=== PATIENT | male | born 1955 | race Caucasian/White ===

== ENCOUNTER 2017-12-26 13:05 | Emergency (ER) | payer OTHER ==
[~2017-12-26] VITALS: Ht 177.8 cm; Wt 123.8 kg
[~2017-12-26 13:05] MED LIST: ACETAMIN W/ COD1 TAB PO; ASPIR 8181 MG PO; AZITHROMYCIN250 M1 PO; BACLOFEN10 MG PO; BACTRIM DS1 TAB PO; BENAZEPRIL HYDR20 M1 PO; CIPRO500 MG PO; CIPROFLOXACIN500 MG PO; CLINDAMYCIN HC300 MG PO; COLACE100 MG PO; DEPAKOTE ER250 M1 PO; DEPAKOTE500 MG PO; DONEPEZIL HCL5 MG PO; DUONEB3 ML NEB; FERROUS SULFAT325 M2 PO; FLO4 PO; HCTZ/LISINOPRIL1 TA1 PO; HYDROCHLOROTH12.5 M2 PO; LAC PO; LAC30L PO; LEVAQUIN500 MG PO; LEVAQUIN750 MG PO; LIPI20 PO; MEDDP PO; NEO500 PO; NEU300 PO; NORCO1 TA2 PO; OMEPRAZOLE DR20 M1 PO; PAIN & FEVER500 MG PO; PHEDML PO; PRILOSEC20 MG PO; TEGRETOL200 MG PO; TYLENOL EXTRA500 M3 PO; VENTOLIN H0.09 MG/A1 IH; ZITHROMAX Z-PA250 MG PO
[2017-12-26 13:10] VITALS: Ht 177.8 cm; Wt 123.8 kg
[2017-12-26 14:07] VITALS: BP 150/83
== END 2017-12-26 14:07 | disposition home or self-care (01) ==
LOC: ED 13:05
DX: N39.0 Urinary tract infection, site not specified (principal); I10 Essential (primary) hypertension; Z90.49 Acquired absence of other specified parts of digestive tract; Z86.73 Personal history of transient ischemic attack (TIA), and cerebral infarction without residual deficits
CPT/HCPCS: J1885

== ENCOUNTER 2018-01-14 09:39 | Emergency (ER) | payer OTHER ==
[~2018-01-14] VITALS: Ht 175.3 cm; Wt 122.9 kg
[2018-01-14 10:56] LABS: BASOPHIL % 0.5 % (0-2); PLATELET COUNT 285 x10^3mcL (130-400); RED CELL DISTRIBUTION WIDTH 13.8 % (11.5-14.5)
[2018-01-14 10:58] LABS: microscopic required? YES; urine erythrocyte 3+ (NEGATIVE)
[2018-01-14 11:05] LABS: CARBON DIOXIDE 30.6 mmol/L (21-32); CHLORIDE SERUM 97 mmol/L (98-107); CREATININE SERUM 0.8 mg/dL (0.7-1.3); GFR1 > 60 mL/min; GLUCOSE SERUM 92 mg/dL (74-106); POTASSIUM SERUM 4.5 mmol/L (3.5-5.1); SODIUM SERUM 134 mmol/L (136-145)
[2018-01-14 11:09] LABS: ALKALINE PHOSPHATASE 96 U/L (46-116); ALT/SGPT 24 U/L (16-63); AST/SGOT 15 U/L (15-37); BILIRUBIN TOTAL 0.4 mg/dL (0.20-1.00); TOTAL PROTEIN, SERUM 6.8 g/dL (6.4-8.2)
[2018-01-14 11:10] LABS: ALBUMIN 3.3 g/dL (3.4-5.0)
[2018-01-14 12:18] VITALS: BP 135/91
== END 2018-01-14 12:18 | disposition home or self-care (01) ==
LOC: ED 09:39
PROVIDERS: Emergency Medicine
DX: R31.9 Hematuria, unspecified (principal); N39.0 Urinary tract infection, site not specified; I10 Essential (primary) hypertension; D64.9 Anemia, unspecified; Z90.49 Acquired absence of other specified parts of digestive tract; Z86.79 Personal history of other diseases of the circulatory system
CPT/HCPCS: 36415

== ENCOUNTER 2018-10-23 13:22 | Inpatient (IN) | payer OTHER ==
[~2018-10-23] VITALS: Ht 177.8 cm; Wt 124.5 kg
[2018-10-23 14:01] LABS: BASOPHIL % 0.5 % (0-2); PLATELET COUNT 272 x10^3mcL (130-400); RED CELL DISTRIBUTION WIDTH 13.1 % (11.5-14.5)
[2018-10-23 14:41] LABS: ALKALINE PHOSPHATASE 103 U/L (46-116); ALT/SGPT 23 U/L (16-63); AST/SGOT 14 U/L (15-37); BILIRUBIN TOTAL 0.5 mg/dL (0.20-1.00); CALCIUM 8.1 mg/dL (8.5-10.1); CHLORIDE SERUM 93 mmol/L (98-107); CREATININE SERUM 0.8 mg/dL (0.7-1.3); GFR1 > 60 mL/min; GLUCOSE SERUM 95 mg/dL (74-106); LIPASE 59 IU/L (73-393); POTASSIUM SERUM 4.4 mmol/L (3.5-5.1); SODIUM SERUM 129 mmol/L (136-145); TOTAL PROTEIN, SERUM 6.5 g/dL (6.4-8.2)
[2018-10-23 14:44] LABS: ALBUMIN 2.9 g/dL (3.4-5.0)
[2018-10-23 18:04] VITALS: BP 151/96
[2018-10-23 18:18] VITALS: Ht 177.8 cm; Wt 124.5 kg
[2018-10-23 18:44] LABS: CHOLESTEROL/HDL RATIO 3.4; MAGNESIUM 1.5 mg/dL (1.8-2.4); PHOSPHOROUS 3.3 mg/dL (2.5-4.9)
[2018-10-23 18:50] LABS: T3 TOTAL 1.08 ng/mL
[2018-10-23 18:52] LABS: FREE T4 0.84 ng/dL (0.76-1.46); FREE THYROXINE INDEX 2.2 ug/dL (1.4-4.5); T4(THYROXINE) 6.8 ug/dL (4.7-13.3)
[2018-10-23 21:11] VITALS: BP 144/77
[2018-10-24 01:17] LABS: microscopic required? NO
[2018-10-24 01:23] LABS: urine erythrocyte NEGATIVE (NEGATIVE)
[2018-10-24 01:51] LABS: AMPHETAMINE QUAL UR NONE DETECTED (See below)
[2018-10-24 05:18] VITALS: BP 146/78
[2018-10-24 07:04] LABS: CALCIUM 8.1 mg/dL (8.5-10.1); CHLORIDE SERUM 99 mmol/L (98-107); CREATININE SERUM 0.8 mg/dL (0.7-1.3); GFR1 > 60 mL/min; GLUCOSE SERUM 91 mg/dL (74-106); PHOSPHOROUS 2.9 mg/dL (2.5-4.9); POTASSIUM SERUM 4.2 mmol/L (3.5-5.1); SODIUM SERUM 133 mmol/L (136-145)
[2018-10-24 07:11] LABS: BASOPHIL % 0.4 % (0-2); PLATELET COUNT 288 x10^3mcL (130-400); RED CELL DISTRIBUTION WIDTH 13.1 % (11.5-14.5)
[2018-10-24 09:12] VITALS: BP 146/84
[2018-10-24 17:46] VITALS: BP 137/94
[2018-10-24 20:19] VITALS: BP 130/78
[2018-10-25 05:47] VITALS: BP 117/74
[2018-10-25 07:28] LABS: BASOPHIL % 0.3 % (0-2); PLATELET COUNT 260 x10^3mcL (130-400)
[2018-10-25 07:41] LABS: CALCIUM 8.1 mg/dL (8.5-10.1); CARBON DIOXIDE 27.8 mmol/L (21-32); CHLORIDE SERUM 100 mmol/L (98-107); CREATININE SERUM 0.8 mg/dL (0.7-1.3); GFR1 > 60 mL/min; GLUCOSE SERUM 89 mg/dL (74-106); POTASSIUM SERUM 3.6 mmol/L (3.5-5.1); SODIUM SERUM 134 mmol/L (136-145)
[2018-10-25 08:22] VITALS: BP 118/77
[2018-10-25 17:11] VITALS: BP 142/88
[2018-10-25 20:58] VITALS: BP 131/92
[2018-10-26 05:13] VITALS: BP 147/90
[2018-10-26 07:28] LABS: BASOPHIL % 0.4 % (0-2); PLATELET COUNT 263 x10^3mcL (130-400); RED CELL DISTRIBUTION WIDTH 12.8 % (11.5-14.5)
[2018-10-26 07:50] LABS: CALCIUM 8.1 mg/dL (8.5-10.1); CARBON DIOXIDE 26.7 mmol/L (21-32); CHLORIDE SERUM 97 mmol/L (98-107); CREATININE SERUM 0.7 mg/dL (0.7-1.3); GFR1 > 60 mL/min; GLUCOSE SERUM 90 mg/dL (74-106); MAGNESIUM 1.6 mg/dL (1.8-2.4); PHOSPHOROUS 3.3 mg/dL (2.5-4.9); POTASSIUM SERUM 3.5 mmol/L (3.5-5.1); SODIUM SERUM 132 mmol/L (136-145)
[2018-10-26 09:21] VITALS: BP 142/88
[2018-10-26 13:02] VITALS: BP 142/88
[2018-10-26] MEDS ORDERED: IMO2 PO (14:18)
[2018-10-26] MEDS ORDERED: ONDANSETRON4 M3 PO (14:18)
== END 2018-10-26 16:15 | disposition home or self-care (01) | DRG 391 ==
LOC: ED 13:22 → MU 17:06
PROVIDERS: Emergency Medicine; Family Medicine
DX: K52.9 Noninfective gastroenteritis and colitis, unspecified (principal); E43 Unspecified severe protein-calorie malnutrition; E87.1 Hypo-osmolality and hyponatremia; E44.0 Moderate protein-calorie malnutrition; E86.0 Dehydration; E83.42 Hypomagnesemia; G40.909 Epilepsy, unspecified, not intractable, without status epilepticus; I10 Essential (primary) hypertension; N40.0 Benign prostatic hyperplasia without lower urinary tract symptoms; G30.9 Alzheimer's disease, unspecified; F02.80 Dementia in other diseases classified elsewhere, unspecified severity, without behavioral disturbance, psychotic disturbance, mood disturbance, and anxiety; E78.5 Hyperlipidemia, unspecified; E66.9 Obesity, unspecified; Z68.39 Body mass index [BMI] 39.0-39.9, adult; Z86.73 Personal history of transient ischemic attack (TIA), and cerebral infarction without residual deficits
CPT/HCPCS: 83880; 84439; 87046; 87046-59; C9113; J1956; J2405; J3475; J3490; Q0092

== ENCOUNTER 2019-02-12 11:06 | Inpatient (IN) | payer OTHER ==
[~2019-02-12] VITALS: Ht 177.8 cm; Wt 116.6 kg
[~2019-02-12 11:06] MED LIST changes: +IMO2 PO; +ONDANSETRON4 M3 PO
[2019-02-12 11:21] VITALS: Ht 177.8 cm; Wt 116.6 kg
[2019-02-12 11:58] LABS: microscopic required? YES; urine erythrocyte 2+ (NEGATIVE)
[2019-02-12 12:17] LABS: BASOPHIL % 0.3 % (0-2); PLATELET COUNT 284 x10^3mcL (130-400); RED CELL DISTRIBUTION WIDTH 13.3 % (11.5-14.5)
[2019-02-12 12:34] LABS: CALCIUM 8.2 mg/dL (8.5-10.1); CARBON DIOXIDE 29.7 mmol/L (21-32); CHLORIDE SERUM 91 mmol/L (98-107); CREATININE SERUM 0.7 mg/dL (0.7-1.3); GFR1 > 60 mL/min; GLUCOSE SERUM 118 mg/dL (74-106); POTASSIUM SERUM 4.5 mmol/L (3.5-5.1); SODIUM SERUM 126 mmol/L (136-145)
[2019-02-12 12:39] LABS: ALKALINE PHOSPHATASE 118 U/L (46-116); ALT/SGPT 17 U/L (16-63); AST/SGOT 16 U/L (15-37); BILIRUBIN TOTAL 0.51 mg/dL (0.20-1.00); TOTAL PROTEIN, SERUM 6.9 g/dL (6.4-8.2)
[2019-02-12 12:43] LABS: ALBUMIN 3.3 g/dL (3.4-5.0)
[2019-02-12] MEDS ORDERED: LIPI10 PO (14:31)
[2019-02-12] MEDS ORDERED: FERROUS SULFAT325 M2 PO (14:31)
[2019-02-12] MEDS ORDERED: BENAZEPRIL HYDR20 M1 PO (14:31)
[2019-02-12] MEDS ORDERED: ASPIR 8181 MG PO (14:32)
[2019-02-12] MEDS ORDERED: OMEPRAZOLE20 M4 PO (14:32)
[2019-02-12] MEDS ORDERED: NEU300 PO (14:33)
[2019-02-12] MEDS ORDERED: DEPAKOTE ER500 MG PO (14:33)
[2019-02-12] MEDS ORDERED: TEGRETOL200 MG PO (14:34)
[2019-02-12] MEDS ORDERED: TAMSULOSIN HYD0.4 M1 PO (14:34)
[2019-02-12] MEDS ORDERED: BACLOFEN10 MG PO (14:34)
[2019-02-12 15:28] LABS: CHOLESTEROL/HDL RATIO 3.2; MAGNESIUM 1.6 mg/dL (1.8-2.4); PHOSPHOROUS 2.4 mg/dL (2.5-4.9)
[2019-02-12 15:34] LABS: FREE T4 0.78 ng/dL (0.76-1.46); FREE THYROXINE INDEX 2.2 ug/dL (1.4-4.5); T4(THYROXINE) 6.7 ug/dL (4.7-13.3)
[2019-02-12 15:35] LABS: T3 TOTAL 1.26 ng/mL
[2019-02-12 15:51] VITALS: BP 143/72
[2019-02-12 20:38] VITALS: BP 117/65
[2019-02-13 05:39] VITALS: BP 105/51
[2019-02-13 06:15] LABS: BASOPHIL % 0.2 % (0-2); PLATELET COUNT 226 x10^3mcL (130-400); RED CELL DISTRIBUTION WIDTH 13.7 % (11.5-14.5)
[2019-02-13 06:38] LABS: CALCIUM 8.1 mg/dL (8.5-10.1); CARBON DIOXIDE 26.7 mmol/L (21-32); CHLORIDE SERUM 96 mmol/L (98-107); CREATININE SERUM 0.8 mg/dL (0.7-1.3); GFR1 > 60 mL/min; GLUCOSE SERUM 122 mg/dL (74-106); MAGNESIUM 1.9 mg/dL (1.8-2.4); PHOSPHOROUS 2.7 mg/dL (2.5-4.9); POTASSIUM SERUM 4.5 mmol/L (3.5-5.1); SODIUM SERUM 131 mmol/L (136-145)
[2019-02-13 08:45] VITALS: BP 131/65
[2019-02-13 14:20] VITALS: BP 113/67
[2019-02-13 17:05] VITALS: BP 121/71
[2019-02-13 21:47] VITALS: BP 136/85
[2019-02-14 05:28] VITALS: BP 134/82
[2019-02-14 06:16] LABS: BASOPHIL % 0.2 % (0-2); PLATELET COUNT 209 x10^3mcL (130-400); RED CELL DISTRIBUTION WIDTH 13.4 % (11.5-14.5)
[2019-02-14 07:01] LABS: CARBON DIOXIDE 27.1 mmol/L (21-32); CHLORIDE SERUM 97 mmol/L (98-107); CREATININE SERUM 0.7 mg/dL (0.7-1.3); GFR1 > 60 mL/min; GLUCOSE SERUM 104 mg/dL (74-106); SODIUM SERUM 129 mmol/L (136-145)
[2019-02-14 09:11] VITALS: BP 128/86
[2019-02-14 13:05] VITALS: BP 113/73
[2019-02-14 16:50] VITALS: BP 112/72
[2019-02-14 21:08] VITALS: BP 156/80
[2019-02-15 05:27] VITALS: BP 142/85
[2019-02-15 06:05] LABS: BASOPHIL % 0.5 % (0-2); PLATELET COUNT 227 x10^3mcL (130-400); RED CELL DISTRIBUTION WIDTH 12.5 % (11.5-14.5)
[2019-02-15 06:10] LABS: CARBON DIOXIDE 28.9 mmol/L (21-32); CHLORIDE SERUM 98 mmol/L (98-107); CREATININE SERUM 0.7 mg/dL (0.7-1.3); GFR1 > 60 mL/min; GLUCOSE SERUM 105 mg/dL (74-106); POTASSIUM SERUM 4.2 mmol/L (3.5-5.1); SODIUM SERUM 132 mmol/L (136-145)
[2019-02-15] MEDS ORDERED: CIPRO500 MG PO (08:47)
[2019-02-15 09:01] VITALS: BP 148/85
[2019-02-15 11:54] VITALS: BP 148/85
[2019-02-15 12:13] VITALS: BP 139/78
== END 2019-02-15 13:24 | disposition home or self-care (01) | DRG 689 ==
LOC: ED 11:06 → MU 14:38 → DU 14:38 → MU 15:29 → DU 16:14
PROVIDERS: Emergency Medicine; ADMIT General Practice
DX: N39.0 Urinary tract infection, site not specified (principal); N17.0 Acute kidney failure with tubular necrosis; I50.43 Acute on chronic combined systolic (congestive) and diastolic (congestive) heart failure; E87.1 Hypo-osmolality and hyponatremia; E87.2 Acidosis; Z68.41 Body mass index [BMI] 40.0-44.9, adult; I69.351 Hemiplegia and hemiparesis following cerebral infarction affecting right dominant side; R73.03 Prediabetes; I69.320 Aphasia following cerebral infarction; I10 Essential (primary) hypertension; B96.29 Other Escherichia coli [E. coli] as the cause of diseases classified elsewhere; N40.1 Benign prostatic hyperplasia with lower urinary tract symptoms; R35.0 Frequency of micturition; E83.39 Other disorders of phosphorus metabolism; E83.42 Hypomagnesemia; E78.5 Hyperlipidemia, unspecified; D64.9 Anemia, unspecified; Z79.82 Long term (current) use of aspirin
CPT/HCPCS: 83880; 84439; 97112-GP; 97116-GP; 97530-GP; J0696; J1885; J7030; Q0092

== ENCOUNTER 2020-02-02 20:59 | Emergency (ER) | payer OTHER ==
[~2020-02-02] VITALS: Ht 170.2 cm; Wt 128.8 kg
[~2020-02-02 20:59] MED LIST changes: +DEPAKOTE ER500 MG PO; +LIPI10 PO; +OMEPRAZOLE20 M4 PO; +TAMSULOSIN HYD0.4 M1 PO
[2020-02-02 21:14] VITALS: Ht 170.2 cm; Wt 128.8 kg
[2020-02-02 22:35] VITALS: BP 166/84
== END 2020-02-02 22:35 | disposition home or self-care (01) ==
LOC: ED 20:59
DX: J20.9 Acute bronchitis, unspecified (principal); I10 Essential (primary) hypertension; Z86.2 Personal history of diseases of the blood and blood-forming organs and certain disorders involving the immune mechanism; Z90.49 Acquired absence of other specified parts of digestive tract; Z98.890 Other specified postprocedural states

== ENCOUNTER 2020-05-02 16:39 | Inpatient (IN) | payer OTHER ==
[~2020-05-02] VITALS: Ht 170.2 cm; Wt 128.8 kg
[2020-05-02 17:04] VITALS: Ht 170.2 cm; Wt 128.8 kg
[2020-05-02 17:54] LABS: microscopic required? NO
[2020-05-02 18:15] LABS: BASOPHIL % 0.7 % (0-2); PLATELET COUNT 350 x10^3mcL (130-400)
[2020-05-02 18:17] LABS: RED CELL DISTRIBUTION WIDTH 16.4 % (11.5-14.5)
[2020-05-02 18:21] LABS: UA SPECIFIC GRAVITY 1.015 (1.005-1.035); urine erythrocyte NEGATIVE (NEGATIVE)
[2020-05-02 18:27] LABS: CALCIUM 7.6 mg/dL (8.5-10.1); CARBON DIOXIDE 24.9 mmol/L (21-32); CHLORIDE SERUM 95 mmol/L (98-107); CREATININE SERUM 0.7 mg/dL (0.7-1.3); GFR1 > 60 mL/min; GLUCOSE SERUM 94 mg/dL (74-106); POTASSIUM SERUM 4.2 mmol/L (3.5-5.1); SODIUM SERUM 127 mmol/L (136-145)
[2020-05-02 18:32] LABS: ALKALINE PHOSPHATASE 97 U/L (46-116); ALT/SGPT 21 U/L (16-63); AST/SGOT 15 U/L (15-37); BILIRUBIN TOTAL 0.4 mg/dL (0.20-1.00)
[2020-05-02 18:34] LABS: TOTAL PROTEIN, SERUM 6.1 g/dL (6.4-8.2)
[2020-05-02] MEDS ORDERED: DEPAKOTE250 MG PO (19:03)
[2020-05-02] MEDS ORDERED: LIPITOR20 MG PO (19:04)
[2020-05-02 19:56] LABS: CHOLESTEROL/HDL RATIO 3.5
[2020-05-02 20:05] LABS: T3 TOTAL 1.08 ng/mL
[2020-05-02 20:06] LABS: FREE T4 0.88 ng/dL (0.76-1.46); FREE THYROXINE INDEX 2.2 ug/dL (1.4-4.5); T4(THYROXINE) 6.6 ug/dL (4.7-13.3)
[2020-05-03 00:43] VITALS: BP 133/79
[2020-05-03 05:40] VITALS: BP 132/77
[2020-05-03 06:33] LABS: CALCIUM 7.9 mg/dL (8.5-10.1); CARBON DIOXIDE 26.4 mmol/L (21-32); CHLORIDE SERUM 97 mmol/L (98-107); CREATININE SERUM 0.8 mg/dL (0.7-1.3); GFR1 > 60 mL/min; GLUCOSE SERUM 90 mg/dL (74-106); MAGNESIUM 1.8 mg/dL (1.8-2.4); PHOSPHOROUS 3.8 mg/dL (2.5-4.9); POTASSIUM SERUM 4.4 mmol/L (3.5-5.1); SODIUM SERUM 131 mmol/L (136-145)
[2020-05-03 07:33] LABS: BASOPHIL % 0.6 % (0-2); PLATELET COUNT 371 x10^3mcL (130-400)
[2020-05-03 07:50] LABS: RED CELL DISTRIBUTION WIDTH 16.7 % (11.5-14.5)
[2020-05-03 08:22] VITALS: BP 163/91
[2020-05-03 08:59] LABS: RED BLOOD CELLS 3.6 M/mm3 (4.52-5.90)
[2020-05-03 10:53] LABS: IRON 23 ug/dL (65-170); TOTAL IRON BINDING CAPACITY 472 ug/dL (250-450)
[2020-05-03 12:17] VITALS: BP 125/70
[2020-05-03 16:32] VITALS: BP 114/67
[2020-05-03 20:37] VITALS: BP 149/80
[2020-05-04 04:48] VITALS: BP 123/79
[2020-05-04 07:03] LABS: BASOPHIL % 0.2 % (0-2); PLATELET COUNT 375 x10^3mcL (130-400)
[2020-05-04 07:04] LABS: CARBON DIOXIDE 29.1 mmol/L (21-32); CHLORIDE SERUM 101 mmol/L (98-107); CREATININE SERUM 1.1 mg/dL (0.7-1.3); GFR1 > 60 mL/min; GLUCOSE SERUM 110 mg/dL (74-106); MAGNESIUM 2.3 mg/dL (1.8-2.4); POTASSIUM SERUM 4.1 mmol/L (3.5-5.1); SODIUM SERUM 138 mmol/L (136-145)
[2020-05-04 07:17] LABS: RED CELL DISTRIBUTION WIDTH 16.7 % (11.5-14.5)
[2020-05-04 08:32] VITALS: BP 145/81
[2020-05-04 12:47] VITALS: BP 139/80
[2020-05-04 17:02] VITALS: BP 107/54
[2020-05-04 19:55] VITALS: BP 109/69
[2020-05-05 05:15] VITALS: BP 133/74
[2020-05-05 06:29] LABS: BASOPHIL % 0.1 % (0-2)
[2020-05-05 06:37] LABS: CALCIUM 7.9 mg/dL (8.5-10.1); CARBON DIOXIDE 25.2 mmol/L (21-32); CHLORIDE SERUM 98 mmol/L (98-107); GFR1 > 60 mL/min; GLUCOSE SERUM 151 mg/dL (74-106); MAGNESIUM 1.7 mg/dL (1.8-2.4); PHOSPHOROUS 3.7 mg/dL (2.5-4.9); POTASSIUM SERUM 4.1 mmol/L (3.5-5.1); SODIUM SERUM 135 mmol/L (136-145)
[2020-05-05 06:40] LABS: PLATELET COUNT 406 x10^3mcL (130-400); RED CELL DISTRIBUTION WIDTH 17.5 % (11.5-14.5)
[2020-05-05 12:02] VITALS: BP 127/86
[2020-05-05 16:53] VITALS: BP 109/80
[2020-05-05 21:00] VITALS: BP 92/59
[2020-05-05 23:19] VITALS: BP 90/57
[2020-05-06 05:44] VITALS: BP 106/60
[2020-05-06 08:44] VITALS: BP 106/58
[2020-05-06 09:51] LABS: PLATELET COUNT 367 x10^3mcL (130-400)
[2020-05-06 09:53] LABS: CALCIUM 7.9 mg/dL (8.5-10.1); CARBON DIOXIDE 32.8 mmol/L (21-32); CREATININE SERUM 2.6 mg/dL (0.7-1.3); POTASSIUM SERUM 4.2 mmol/L (3.5-5.1)
[2020-05-06 10:10] LABS: RED CELL DISTRIBUTION WIDTH 17.5 % (11.5-14.5)
[2020-05-06 13:17] VITALS: BP 103/62
[2020-05-06 14:19] LABS: BAND NEUTROPHIL 5 % (0-10); BASOPHIL 0 % (0-2); MONOCYTE 51 % (0-7); SEGMENTED NEUTROPHILS 26 % (37-75)
[2020-05-06 14:20] LABS: PLATELET MORPHOLOGY PLATELETS INCREASED; rbc morphology (normal/abnorm) ABNORMAL (NORMAL)
[2020-05-06 17:00] VITALS: BP 112/72
[2020-05-06 21:05] VITALS: BP 103/58
[2020-05-07 03:05] LABS: BASOPHIL % 0.4 % (0-2); PLATELET COUNT 333 x10^3mcL (130-400); RED CELL DISTRIBUTION WIDTH 17.2 % (11.5-14.5)
[2020-05-07 03:18] LABS: CALCIUM 7.7 mg/dL (8.5-10.1); CARBON DIOXIDE 30.8 mmol/L (21-32); CREATININE SERUM 1.3 mg/dL (0.7-1.3); POTASSIUM SERUM 3.9 mmol/L (3.5-5.1)
[2020-05-07 05:00] VITALS: BP 114/70
[2020-05-07 08:22] VITALS: BP 105/59
[2020-05-07 13:42] VITALS: BP 123/90
[2020-05-07 17:32] VITALS: BP 151/83
[2020-05-08 05:22] VITALS: BP 149/94
[2020-05-08 07:07] LABS: PLATELET COUNT 301 x10^3mcL (130-400)
[2020-05-08 07:20] LABS: CALCIUM 7.5 mg/dL (8.5-10.1); CARBON DIOXIDE 28.1 mmol/L (21-32); CHLORIDE SERUM 101 mmol/L (98-107); CREATININE SERUM 0.9 mg/dL (0.7-1.3); GFR1 > 60 mL/min; GLUCOSE SERUM 110 mg/dL (74-106); POTASSIUM SERUM 3.6 mmol/L (3.5-5.1); RED CELL DISTRIBUTION WIDTH 17.1 % (11.5-14.5); SODIUM SERUM 137 mmol/L (136-145)
[2020-05-08 08:21] VITALS: BP 149/95
[2020-05-08 12:04] VITALS: BP 121/66
[2020-05-08 12:47] LABS: BAND NEUTROPHIL 0 % (0-10); BASOPHIL 0 % (0-2); MONOCYTE 18 % (0-7); SEGMENTED NEUTROPHILS 76 % (37-75); rbc morphology (normal/abnorm) ABNORMAL (NORMAL)
[2020-05-08 12:48] LABS: PLATELET MORPHOLOGY PLATELETS NORMAL
[2020-05-08 17:00] VITALS: BP 162/81
[2020-05-08 17:15] VITALS: BP 128/81
[2020-05-08 20:40] VITALS: BP 144/96
[2020-05-09 05:21] VITALS: BP 105/70
[2020-05-09 07:09] LABS: CARBON DIOXIDE 27.8 mmol/L (21-32); CHLORIDE SERUM 101 mmol/L (98-107); CREATININE SERUM 0.7 mg/dL (0.7-1.3); GFR1 > 60 mL/min; GLUCOSE SERUM 93 mg/dL (74-106); POTASSIUM SERUM 3.3 mmol/L (3.5-5.1); SODIUM SERUM 135 mmol/L (136-145)
[2020-05-09 07:34] LABS: BASOPHIL % 0.4 % (0-2); PLATELET COUNT 268 x10^3mcL (130-400)
[2020-05-09 07:40] LABS: RED CELL DISTRIBUTION WIDTH 17.2 % (11.5-14.5)
[2020-05-09 07:54] VITALS: BP 159/93
[2020-05-09] MEDS ORDERED: SEN PO (08:53)
[2020-05-09] MEDS ORDERED: LACTULOSE10 GM/152 PO (10:43)
[2020-05-09] MEDS ORDERED: FERROUS SULFAT325 M2 PO (10:43)
== END 2020-05-09 13:58 | disposition home or self-care (01) | DRG 812 ==
LOC: ED 16:39 → MU 19:05 → DU 19:05 → MU 21:59 → DU 05-05 01:06
PROVIDERS: Emergency Medicine; Family Medicine; Internal Medicine Gastroenterology; ADMIT Internal Medicine; ATTEND Internal Medicine
PROC: 0DB68ZX Excision of Stomach, Via Natural or Artificial Opening Endoscopic, Diagnostic (ICD-10-PCS; principal; 2020-05-03 10:30)
PROC: 0DBH8ZZ Excision of Cecum, Via Natural or Artificial Opening Endoscopic (ICD-10-PCS; 2020-05-04 11:15)
PROC: 0D9670Z Drainage of Stomach with Drainage Device, Via Natural or Artificial Opening (ICD-10-PCS; 2020-05-05)
DX: D50.9 Iron deficiency anemia, unspecified (principal); E87.1 Hypo-osmolality and hyponatremia; E44.1 Mild protein-calorie malnutrition; K56.0 Paralytic ileus; I69.351 Hemiplegia and hemiparesis following cerebral infarction affecting right dominant side; Z68.41 Body mass index [BMI] 40.0-44.9, adult; E87.8 Other disorders of electrolyte and fluid balance, not elsewhere classified; I10 Essential (primary) hypertension; E66.9 Obesity, unspecified; K44.9 Diaphragmatic hernia without obstruction or gangrene; N40.0 Benign prostatic hyperplasia without lower urinary tract symptoms; E78.5 Hyperlipidemia, unspecified; Z82.0 Family history of epilepsy and other diseases of the nervous system; Z79.899 Other long term (current) drug therapy
CPT/HCPCS: 43235; 45378; 82962; 83880; 84439; 92526-GN; 92610-GN; 97112-GP; 97116-GP; 97530-GP; G0378; J1200; J1610; J1885; J1940; J2250; J2310; J2405; J2765; J3010; J3475; J3490; J7030; Q0092; Q9967

== ENCOUNTER 2020-11-11 05:59 | Day surgery (SDC) | payer OTHER ==
[2020-11-07 13:12] LABS: ALKALINE PHOSPHATASE 89 U/L (46-116); ALT/SGPT 23 U/L (16-63); AST/SGOT 9 U/L (15-37); BILIRUBIN TOTAL 0.44 mg/dL (0.20-1.00); CALCIUM 8.6 mg/dL (8.5-10.1); CHLORIDE SERUM 96 mmol/L (98-107); CREATININE SERUM 0.9 mg/dL (0.7-1.3); GFR1 > 60 mL/min; GLUCOSE SERUM 94 mg/dL (74-106); POTASSIUM SERUM 4.9 mmol/L (3.5-5.1); SODIUM SERUM 132 mmol/L (136-145); TOTAL PROTEIN, SERUM 6.7 g/dL (6.4-8.2)
[2020-11-07 13:15] LABS: BASOPHIL % 0.4 % (0-2); PLATELET COUNT 234 x10^3mcL (130-400); RED CELL DISTRIBUTION WIDTH 14.3 % (11.5-14.5)
[2020-11-07 13:20] LABS: ALBUMIN 3.2 g/dL (3.4-5.0)
[~2020-11-11] VITALS: Ht 175.3 cm; Wt 78.9 kg
[~2020-11-11 05:59] MED LIST changes: +DEPAKOTE250 MG PO; +LACTULOSE10 GM/152 PO; +LIPITOR20 MG PO; +SEN PO
[2020-11-11 06:26] LABS: microscopic required? NO
[2020-11-11 06:46] VITALS: BP 152/88
[2020-11-11 07:10] LABS: UA SPECIFIC GRAVITY 1.015 (1.005-1.035); urine erythrocyte NEGATIVE (NEGATIVE)
[2020-11-11 13:13] VITALS: BP 144/87
== END 2020-11-11 12:30 | disposition home or self-care (01) ==
LOC: DS 05:59 → OR 07:30 → DS 07:30
PROVIDERS: ATTEND Urology
DX: N50.89 Other specified disorders of the male genital organs (principal); Z20.828 Contact with and (suspected) exposure to other viral communicable diseases; E66.3 Overweight; K21.9 Gastro-esophageal reflux disease without esophagitis; Z86.73 Personal history of transient ischemic attack (TIA), and cerebral infarction without residual deficits; J45.909 Unspecified asthma, uncomplicated; G40.802 Other epilepsy, not intractable, without status epilepticus
CPT/HCPCS: 88344; J0696; J2001; J2405; J2704; J3010; J3490; J7120; U0003